=== PATIENT | male | born 1960 | race Caucasian/White ===

== ENCOUNTER 2016-09-10 06:19 | Day surgery (SDC) | payer BC ==
[2016-09-06 11:19] LABS: HEMATOCRIT 46.7 % (40.0-51.0); HEMOGLOBIN 16.9 g/dL (13.6-17.8)
[2016-09-06 11:34] LABS: ASCORBIC ACID (UR NOT ORDER) NEG (NEG); BILIRUBIN, URINE NEGATIVE (NEG); KETONE, URINE NEGATIVE (NEG); LEUKOCYTE ESTERASE(NOT OR NEG (NEG); WBC (NOT ORDERED) (RFLEX) < 1 (0-5)
[2016-09-06 11:56] LABS: BUN (BLOOD UREA NITROGEN) 13 MG/DL (6-23); CALCIUM, SERUM 9.2 MG/DL (8.5-10.4); CHLORIDE, SERUM 104 MMOL/L (96-112); CO2 (CARBON DIOXIDE) 28 MMOL/L (24-34); CREATININE 1.27 MG/DL (0.70-1.30); GFR AFRICAN AMERICAN 72 ML/MIN (>=60); GFR NON AFRICAN AMERICAN 62 ML/MIN (>=60); POTASSIUM, SERUM 4.7 MMOL/L (3.5-5.3); SODIUM, SERUM 140 MMOL/L (135-148)
[2016-09-06 12:02] LABS: GLUCOSE, SERUM 154 MG/DL (60-99)
--- NOTE | ~2016-09-10 | OP ---
Record Of Operation [facility] [address] [place]. [address] NAME: MARIN BUTLER : 56 STATUS : REG [facility]#: [id number] AGE: 56 ADM/REG DATE : 09/10/16 MR#: [id number] REPORT SERV DATE: 09/10/16 DICTATED BY: DEL MICHELLE JR. DATE: 09/10/16 REPORT STATUS : Draft TRANSCRIBED BY: DAVIS DATE: 09/10/16 DATE OF PROCEDURE: 09/10/2016 SURGEON: Del Michelle M.D. PREOPERATIVE DIAGNOSIS: Left hydrocele. POSTOPERATIVE DIAGNOSIS: Left hydrocele. PROCEDURE PERFORMED: Left hydrocelectomy. COMPLICATIONS: None. CONSULTATIONS: None. ANESTHESIA: General with laryngeal mask airway. SPECIMENS: None. DRAINS: None. ESTIMATED BLOOD LOSS: 5 mL. INDICATION: Mr. Butler is a 56-year-old gentleman with a painful enlarging left hydrocele, this is a very tense hydrocele and is causing him quite a bit of discomfort. He comes today for left hydrocelectomy. PROCEDURE IN DETAIL: After the patient was identified, and proper informed consent was obtained, he was taken to the operating room. General anesthesia was performed without complication using a laryngeal mask airway. He was then prepped and draped in normal sterile fashion in the supine position. A transverse scrotal incision was made approximately 4 to 5 cm in length. The dartos fascia was dissected down to the tunica albuginea and the testicle was delivered through the incision. The hydrocele sac was incised vertically throughout its length and marsupialized. There was really not a lot of extra hydrocele sac to remove, so, I simply marsupialized the hydrocele sac, and closed it using a locking 3-0 chromic suture. I then replaced the testicle after irrigation and inspection for hemostasis back into the scrotal compartment. I closed the dartos fascia using a 2-0 chromic suture in a running locking fashion and 3-0 chromic in the skin. Dermabond, fluffs, and a scrotal support were used for dressing. The patient was awakened in the operating room and transferred to the postanesthesia care in stable condition. I will see him back in the office in approximately two weeks for followup. RICARDO/DAVIS Record Of [place] [address] [place] [place]. [id number] NAME: MARIN BUTLER : 56 [place]US : [place] [facility] [place] [id number] AGE: 56 ADM/REG DATE : 09/10/16 MR#: [id number] REPORT SERV DATE: 09/10/16 DICTATED BY: DEL MICHELLE JR. DATE: 09/10/16 REPORT STATUS : Draft TRANSCRIBED BY: DAVIS DATE: 09/10/16 Del Michelle Jr., M.D. / [id number] CC: Kim David Jr., M.D.
[~2016-09-10 06:19] MED LIST: B12250T PO; COZ50 PO; FORTAMET500 MG PO; NORV5 PO; VITAMIN D31000 UNIT PO; ZOCOR10 PO
== END 2016-09-10 15:33 | disposition home or self-care (01) ==
LOC: SDC 06:19
PROVIDERS: Urology
PROC: 0VB70ZZ Excision of Left Tunica Vaginalis, Open Approach (ICD-10-PCS; principal; 2016-09-10 07:45)
DX: N43.3 Hydrocele, unspecified (principal); I10 Essential (primary) hypertension; E11.9 Type 2 diabetes mellitus without complications; E78.00 Pure hypercholesterolemia, unspecified; E78.5 Hyperlipidemia, unspecified; Z90.5 Acquired absence of kidney
CPT/HCPCS: 80048; 81001; 82962; 85014; 85018; 93005; A9270-GY; J0690; J0694; J2250; J3010